=== PATIENT | female | born 1985 | race African-American/Black ===

== ENCOUNTER 2017-08-12 08:13 | Emergency (ER) | payer OTHER ==
[2017-08-12] MEDS: KETOROLAC 30 MG INJ IM (08:48)
[2017-08-12 08:54] LABS: ADD UMIC YES; UR ASCORBIC ACID NEGATIVE (NEGATIVE); UR BACTERIA FEW /HPF (NONE SEEN); UR BILIRUBIN (Dip) NEGATIVE (NEGATIVE); UR BLOOD (Dip) NEGATIVE (NEGATIVE); UR CLARITY CLEAR (CLEAR); UR COLOR YELLOW (YELLOW); UR GLUCOSE (Dip) NEGATIVE (NEGATIVE); UR KETONES (Dip) NEGATIVE (NEGATIVE); UR LEUKOCYTE ESTERASE (Dip) TRACE Leu/ul (NEGATIVE); UR NITRITE (Dip) NEGATIVE (NEGATIVE); UR RBC 0 /HPF (0-5); UR SPECIFIC GRAVITY (Dip) 1.013 (1.003-1.030); UR SQUAMOUS EPITHELIAL CELL FEW /HPF (FEW); UR TOTAL PROTEIN (Dip) NEGATIVE (NEGATIVE); UR UROBILINOGEN (Dip) NEGATIVE (NEGATIVE); UR WBC 3 /HPF (0-5)
== END 2017-08-12 09:14 | disposition home or self-care (01) ==
LOC: FTE 08:13
DX: M54.5 Low back pain (principal)
CPT/HCPCS: 81001; 81025; 96372; 99284-25

== ENCOUNTER 2017-09-30 12:19 | Emergency (ER) | payer OTHER | END 2017-09-30 13:40 | disposition left against medical advice (07) | LOC: FTE 12:19 | DX: Z48.01 Encounter for change or removal of surgical wound dressing (principal) | CPT/HCPCS: 99281 ==

== ENCOUNTER 2018-01-31 07:25 | Emergency (ER) | payer OTHER ==
[2018-01-31] MEDS: IBUPROFEN 800 MG TAB PO (07:59)
== END 2018-01-31 08:20 | disposition home or self-care (01) ==
LOC: FTE 07:25
DX: M54.9 Dorsalgia, unspecified (principal); Z87.891 Personal history of nicotine dependence
CPT/HCPCS: 99283